=== PATIENT | female | born 1945 | race Caucasian/White ===

== ENCOUNTER 2017-08-10 02:11 | Inpatient (IN) | payer OTHER, MEDICARE ==
--- NOTE | 2017-07-29 15:05 | PN- Neurosurgical ---
Surgical Brief Attending Note Brief Attending Note: Chief complaint right neck and arm pain 71-year-old lady who became symptomatic region right shoulder 2017 and had multiple injections became more symptomatic in February 2017 with pain in the lower posterior right neck into the right shoulder into the anterior lateral aspect of the right arm to the mid arm level She complains of dropping objects and has interference with her sleep pattern. Her symptoms are worse with activity and improved with medication. She complains of numbness in her arm and posterior headaches. She has been in physical therapy for a lengthy period of time and had some relief with epidural injections Past medical history is positive for hypothyroidism hypotension fractured ankle the of 3 children She is allergic to penicillin She is taking levothyroxine Crestor Zetia will soften as tolerated an airborne. She does not have sleep apnea. She does not smoke. She very rarely uses ethanol. No use of illicit drugs. Examination she stands 5 foot 4 wastewater 18 pounds HEENT; her cranial nerves are intact. She has a relatively well preserved range of motion of her neck. She has no clearcut Spurling or axial loading signs. She has some weakness of extensor digiti quinti on the right. She has an absent triceps reflex on the right. Remainder of her reflexes are symmetric symmetrical. Pinprick does not reveal any strong loss. She has no evidence of myelopathy MRI demonstrates a large disc extrusion at C6 7 and significant spondylosis at C5 6 with a hemangioma body of C6 for admission discectomy fusion also vertebrectomy. KAISER Grider MD
[~2017-08-10] VITALS: Ht 162.6 cm; Wt 97.5 kg
[~2017-08-10 02:11] MED LIST: AIRBORNE EFFER1 EACH PO; CRESTOR5 M1 PO; LEVOTHYROXINE150 MCG PO; MERIBIN5 M1 PO; ZETIA10 M1 PO
[2017-08-10 06:50] LABS: ABSOLUTE BASOPHIL COUNT 0 /CUMM (0.0-0.2); ABSOLUTE EOSINOPHIL COUNT 0.3 /CUMM (0.0-0.7); ABSOLUTE GRANULOCYTE CT 2.4 /CUMM (1.4-6.5); ABSOLUTE LYMPH COUNT 1.7 /CUMM (1.2-3.4); ABSOLUTE MONOCYTE COUNT 0.6 /CUMM (0.10-0.60); BASOPHIL % 0.8 % (0.0-2.0); EOSINOPHIL % 5.5 % (0-5); GRANULOCYTE % 48.9 % (42.2-75.2); HEMATOCRIT 45.8 % (37-47); MEAN CORPUSCULAR HGB 28.9 PG (27.0-31.0); MEAN CORPUSCULAR HGB CONC 33.3 G/DL (33.0-37.0); MEAN CORPUSCULAR VOLUME 86.7 FL (81.0-99.0); MEAN PLATELET VOLUME 7.3 FL (7.4-10.4); PLATELET COUNT 171 /CUMM (130-400); RBC DISTRIBUTION WIDTH 13.6 % (11.5-14.5); RED BLOOD CELL CT 5.28 /CUMM (4.20-5.40)
[2017-08-10] MEDS ORDERED: HYZAAR 50-12.51 EACH PO (07:12)
[2017-08-10] MEDS ORDERED: ST. JOSEPH ASPI81 M1 PO (07:12)
[2017-08-10] MEDS ORDERED: PRILOSEC OTC20 M1 PO (07:13)
--- NOTE | 2017-08-10 12:39 | Operative Report ---
Operative/Inv Procedure Report Surgery Date: 08/10/17 Name of Procedure: #1 anterior cervical microscopic discectomy C56 C6-7 #2 preparation of space for fusion C5 6 C6 7 Pre-Operative Diagnosis: Herniated cervical disc C6 7 Spondylosis C5 6 Hemangioma C6 Post-Operative Diagnosis: Same Estimated Blood Loss: 200cc Surgeon/Deputy Sheriff [id number] Handler: Cheo MORELAND,Spencer Sanders(co-surgeon) MD Corea Michael Anesthesia: general endotracheal tube Monitors: Neurophysiology monitors IV Fluids: See anesthesia note Implants: see Spencer Grider MD's note Urine Output: See anesthesia note Drains: None Specimens: None Microbiology: None Tourniquet: None Complications: None Condition: Stable Operative Indication: 71-year-old woman with excruciating neck pain and arm pain was found to have a large disc herniation at C6-7 she was also unfortunately found to have significant amount of spondylotic disease at C5 6. Her condition was, plicated by the fact that she has a very large hemangioma within the body of C6 putting at risk the placement of screws at the time of instrumentation. It was decided that she needed a decidedly tethered disks excised and the osteophytes at C5 6 rim removed but also she was going to require an anterior vertebrectomy at C6 Indications for surgery alternative risks and possible complications including disfigurement and paralysis were discussed at length patient elected to have surgery performed O guarantees given all questions answered Operative/Procedure Note Note: The patient was brought supine to the operating room intubated supine kept supine with her head in a traction device with 15 pounds of weight and her arms tucked down by her She had received 2 g of intravenous antibiotics and 10 mg of Decadron The skin was prepped and draped usual sterile manner infiltrated with Xylocaine and epinephrine and sharp dissection was carried out into the skin folds and sharp and carried down to the platysma. Skin flaps were elevated superiorly and inferiorly. The platysma was dissected in the direction of its fibers and sharp dissection was carried out onto the anterior cervical fascia was identified fascia stripped superiorly and inferiorly following this [place] were positioned and film confirmed that we were at C5-C6 and C6-7 Following this after disinserting the longus coli muscle and inserting the Trimline retractors horizontally and vertically under the magnification and illumination provided for by the Leica microscope the disc space were entered at both levels starting at C6/7 and then at C5 6 attention was first directed to C6 -7 where disc material was completely removed and a rent in the posterior longitudinal ligament identified. Through that rents were able to extrude with her help of the nerve hook large pieces of fresh extruded disc. This rent was then enlarged and a recurrent large a remainder of disc was removed with nerve hook until passage of a micro-ball dissector came back without any further fragments Attention was then directed to the C5 6 level which significantly more osteophytic intervertebral body director mobile was used until identification of an edge where 1 mm Kerrison was passed from which using both 1 and 2 mm Kerrisons the osteophytes were taken down the foramen they opened Once the 2 spaces were free of direct compression of the cord the surfaces where prepared for fusion with the aid of angled curettes and high-speed drills to remove osteophytes The next step was to perform a vertebrectomy for excision of hemangioma and this we dictated separately Findings: Extruded disc at C6/7 Discharge Disposition: PACU Additional Comments: Neurophysiology monitoring remained silent CC: Mario MORELAND,Everett Sanders; Cheo MORELAND,Spencer Sanders
--- NOTE | 2017-08-10 13:50 | Admission Core Measures ---
Acute Coronary Syndrome (CM) ACS Core Measures Acute Coronary Syndrome Diagnosis No Congestive Heart Failure (NEW) CHF Core Measures Congestive Heart Failure Diagnosis No Cerebrovascular Accident CVA Core Measures CVA/TIA Diagnosis No Venous Thromboembolism VTE Core Amita (View Protocol) VTE Risk Factors Surgery No Mechanical VTE Prophylaxis d/t N/A MechProphylax Ordered No VTE Pharm Prophylaxis d/t NA PharmProphylax ordered Problem List As ranked by this Provider includes Assessment & Plan 1. Cervical spinal stenosis HOME MEDS Home Med List Aspirin ([place] Aspirin) 81 MG TABLET.DR 1 TAB PO DAILY HEART HEALTH ( Reported) Biotin (Meribin) (Unknown Strength) CAPSULE (Unknown Dose) PO DAILY SUPPLEMENT (Reported) Ezetimibe (Zetia) 10 MG TABLET 1 TAB PO DAILY CHOLESTEROL (Reported) Levothyroxine Sodium 150 MCG TABLET 1 TAB PO DAILY THYROID (Reported) Losartan/Hydrochlorothiazide (Hyzaar 50-12.5 Tablet) 50 MG-12.5 MG TABLET 1 TAB PO DAILY BP (Reported) Mv-Min/Vit C/Glu/Natasha HCl/Hc124 (Airborne Effervescent Tablet) (Unknown Strength) TABLET.EFF 3 TAB PO DAILY SUPPLEMENT (Reported) Omeprazole Magnesium (Prilosec Otc) 20 MG TABLET.DR 2 TAB PO DAILY GERD ( Reported) Rosuvastatin Calcium (Crestor) 5 MG TABLET 1 TAB PO DAILY CHOLESTEROL ( Reported)
--- NOTE | 2017-08-10 15:18 | RADIOLOGY REPORT ---
EXAMINATION: CR CERVICAL SPINE/INTRAOPERATIVE FLUOROSCOPY CLINICAL INDICATION: ACD C5-C6, C6-C7 with fusion in OR. COMPARISON: CT scan of the cervical spine dated 05/02/2017. MRI scan of the cervical spine dated 04/21/2017. TECHNIQUE/FINDINGS: Fluoroscopic equipment was dedicated to the operating room for the performance of an intraoperative procedure. Several (10) spot films were acquired and are archived in PACS. Please refer to operative notes for procedural detail. FLUOROSCOPY TIME: 1.1 minutes. IMPRESSION: Administrative dictation for intraoperative fluoroscopy and image archiving in PACS. Please refer to operative notes for details.
--- NOTE | 2017-08-10 16:43 | PN- Orthopedic ---
Subjective Subjective: POC still groggy from anesthesia, no oob yet, thirsty/hungry. no cp/sob/n/v. rue still weak, painful with limited rom "no better than before" Objective Vital Signs and I&Os see EMR Physical Exam: gen- nad, sleepy neck- collar in place, incision dressed- cdi. cad- s1s2 pulm- no audible wheeze ext- palp radial pulses bl, rue sensation intact, limited active rom. lue with gross motor/sensate intact. calves soft nt bl, gross motor/sensate intact, alps on. Assessment/Plan Assessment/Plan A- POD0 sp ACDF C5-6, C6-7, with residual effects of anesthesia, with continued preop RUE symptoms P- prn pain meds diet as tolerated home meds collar at all times hl once voiding, tolerating diet oob, ambualte alps no pharmacologic dvt ppx per Dr. Grider (home [id number] ok) will dw attending Core Measures Venous Thromboembolism VTE Risk Factors Surgery No Mechanical VTE Prophylaxis d/t N/A MechProphylax Ordered No VTE Pharm Prophylaxis d/t NA PharmProphylax ordered
[2017-08-10 17:56] VITALS: BP 160/90
[2017-08-10 20:08] VITALS: BP 166/90
[2017-08-10 21:36] VITALS: BP 170/90
[2017-08-11 02:05] VITALS: BP 166/98
[2017-08-11 06:00] VITALS: BP 158/82
--- NOTE | 2017-08-11 07:33 | PN- Neurosurgical ---
Surgical Brief Attending Note Brief Attending Note: POD#1 AVSS resolved arm pain expected neck discomfort,tolerable,but sore throat no hoarseness plan:ambulate hopefully discharge later today
[2017-08-11 08:34] LABS: ABSOLUTE BASOPHIL COUNT 0 /CUMM (0.0-0.2); ABSOLUTE EOSINOPHIL COUNT 0 /CUMM (0.0-0.7); ABSOLUTE GRANULOCYTE CT 11.7 /CUMM (1.4-6.5); ABSOLUTE LYMPH COUNT 0.9 /CUMM (1.2-3.4); ABSOLUTE MONOCYTE COUNT 0.9 /CUMM (0.10-0.60); BASOPHIL % 0 % (0.0-2.0); EOSINOPHIL % 0 % (0-5); HEMATOCRIT 42.7 % (37-47); MEAN CORPUSCULAR HGB 29.2 PG (27.0-31.0); MEAN CORPUSCULAR HGB CONC 33.8 G/DL (33.0-37.0); MEAN CORPUSCULAR VOLUME 86.6 FL (81.0-99.0); MEAN PLATELET VOLUME 8.1 FL (7.4-10.4); PLATELET COUNT 184 /CUMM (130-400); RBC DISTRIBUTION WIDTH 13.4 % (11.5-14.5); RED BLOOD CELL CT 4.94 /CUMM (4.20-5.40)
--- NOTE | 2017-08-11 08:44 | Patient Discharge Instructions ---
Discharge Instructions General Discharge Information You were seen/treated for: Neck pain and right upper extremity pain and weakness You had these procedures: C5/6, C6/7 decompression and fusion Watch for these problems: Fever over 100.4 Drainage from wound Redness and swelling around wound Increased pain or numbness in upper extremity Call Surgeon to remove: wound check No bath, but you may shower: Yes (keep wound clean and dry) Special Instructions: Daily dry dressing change Diet Continue normal diet: Yes Activity Activity Self Limited: Yes Pounds, do NOT lift more than: 10 Other activity limits: Cervical collar to be worn at all times Acute Coronary Syndrome Inclusion Criteria At DC or during hospital stay patient has or had the following: ACS DIAGNOSIS No Discharge Core Measures Meds if any: Prescribed or Continued at Discharge Meds if any: NOT Prescribed or Continued at Discharge Congestive Heart Failure Inclusion Criteria At DC or during hospital stay patient has or had the following: CHF DIAGNOSIS No Discharge Core Measures Meds if any: Prescribed or Continued at Discharge Meds if any: NOT Prescribed or Continued at Discharge Cerebrovascular accident Inclusion Criteria At DC or during hospital stay patient has or had the following: CVA/TIA Diagnosis No Discharge Core Measures Meds if any: Prescribed or Continued at Discharge Meds if any: NOT Prescribed or Continued at Discharge Venous thromboembolism Inclusion Criteria VTE Diagnosis No VTE Type NONE VTE Confirmed by (Test) NONE Discharge Core Measures - Per Current guidelines, there needs to be overlap - treatment for the first 5 days of Warfarin therapy. - If discharged on Warfarin prior to 5 days of - overlap therapy, the patient will need to be - assessed for post discharge needs including - *Post discharge parental anticoagulation - *Warfarin and/or parental anticoagulation education - *Follow up date to check INR post discharge At least 5 days overlap therapy as Inpatient No Meds if any: Prescribed or Continued at Discharge Note: Overlap Therapy is Warfarin and Anticoagulant Meds if any: NOT Prescribed or Continued at Discharge
[2017-08-11] MEDS ORDERED: PERCOCET 5-3251 EACH PO (08:45)
--- NOTE | 2017-08-11 08:49 | Surg Short-stay <48hrs Dis Sum ---
Visit Information Visit Dates Admission Date: 08/10/17 Surgical Short Stay DC Summary Admission Diagnosis: Cervical disc herniation Final Diagnosis: Same Procedure(s): C5-6, C6-7 decompression, fusion Summary/Significant Findings: Patient had an elective ACDF level of C5-6-7 on August 10, [address] Cecilia delgado in Spencer Grider MD. Patient tolerated the procedure well. Postoperatively she was tolerating a regular diet, her pain was controlled, she was voiding, she was working with physical therapy and cleared for discharge to home. Discharge prescriptions were given. She was given instructions to follow-up with Dr. Alegria in the office in 10-14 days. Discharge instructions are reviewed with the patient and she understood Condition at Discharge: Good Discharge Disposition: home health services Discharge instructions provided to patient/family: Yes Post discharge follow-up plan: Follow-up with Dr. Alegria in 10-14 days
[2017-08-11 10:00] VITALS: BP 140/80
[2017-08-11 10:06] LABS: WHITE BLOOD CELL COUNT 13.5 /CUMM (4.8-10.8)
[2017-08-11 14:22] VITALS: BP 130/70
--- NOTE | 2017-08-11 23:42 | PN- Orthopedic ---
Surgical Brief Attending Note Brief Attending Note: Hospital Postoperative Inpatient Follow-Up Note (POD #1, HD #1): Patient seen by Dr. Grider for routine inpatient postoperative follow-up on @ 12:30 PM. History Of Present Illness: Mabel Fry is a 71 year old right-handed white female now 1 day S/P C6-C7 and C5-C6 anterior cervical decompressive discectomies, C6 vertebrectomy for resection of erosive intravertebral hemangioma and C5-C7 instrumented structural and morselized corticocancellous autograft strut fusion (08/10/2017, Cheo/ Nahomy). The procedure was performed for very large C6-C7 disc herniation causing spinal cord compression, moderate lateral C5-C6 disk herniation causing radicular compression, degenerative disk disease with endplate signal change at both levels and C6 erosive hemangioma with vertebral wall defects suggesting high risk for or impending fracture and/or epidural hemorrhage. All of these findings were associated with intractable axial neck and right greater than left arm pain along with significant functional deficit unresponsive to a comprehensive and prolonged conservative management program despite good compliance. Her surgery was uncomplicated and she did well during the immediate postoperative period. There was no significant hemmorhage during the vertebrectomy and the entire hemangioma appeared to be resected without residua or significant remaining postoperative hemmorhage risk. She was closely observed overnight following standard anterior cervical discectomy and vertebrectomy postoperative nursing care protocols without any adverse symptomatic complaints or clinical status changes reported. Her pain was adequately controlled overnight per patient and nursing reports using oral and occasional iV breakthrough narcotic pain medication. She is comfortable currently with decreasing requirements for only oral medications to control pain at this point. She does not feel that she will require any further intravenous breakthough medication. She has already been ambulating in the hallway with physical therapy. She reports subjectively significantly decreased right arm radiating pain as well as early improvement in right hand strength and coordination. Her bilateral hand numbness is unchanged so far but is certainly no worse than it was preoperatively by patient report. She is tolerating collar use and appears to be compliant with minimizing neck motion. By standard criterion, the patient appears ready for home discharge. Physical Examination: On initial visual assessment of the patient upon entering the room, she appeared comfortable and was sitting upright in the chair eating lunch. She was fully awake without sedation and with appropriate responses to questions, commands and general conversation. She was not requiring supplemental nasal cannula oxygen and appeared to be exchanging air normally without any labored breathing. Her vocalizations were normal with only minimal and intermittent hoarseness consistent with early postoperative status following extensive, multilevel anterior cervical spinal decoompression and fusion particularly given her esparza neck. Her Rice-J rigid cervical immobilization collar was reasonably well fitted (albeit slightly but acceptably loose for patient comfort and tolerance) without discomfort or irritation evident. The collar was removed and the cervical region examined. There was no significant adverse change or increased pain reported with the collar removed. The dressing was clean, dry and intact. There was no evidence of irritation, inflammation, erythema, swelling, fullness, tenderness or any other abnormality in the surgical site or surrounding anterior cervical region to visual or palpation evaluation. The dressing was left in place and the patient will be instructed regarding dressing changes following showering. Motion was not tested due to her early postoperative status. The cervical collar was reapplied and the position of the Velcro straps were marked so that the patient could easily restore optimal fit as needed. The patient reported acceptable comfort in the collar after reapplication. On standard postoperative neuromuscular examination, her bilateral real estate consultant strength, finger extension and finger abduction (which had been slightly weak preoperatively) were normal. Her bilateral upper extremity motor examination was normal and unchanged from preoperative assessment. Her bilateral hand sensation was also normal and unchanged from her reported preoperative state. She reflexes and bilateral hand coordination were also grossly normal and unchanged from preop. She can already flex and abduct the right shoulder to a higher elevation and maintain elevation against resistance with full strength without give-way which was not possible preoperatively due to radicular pain and subtle weakness. She is still quite limited in motion and function of the right shoulder secondary to severe osteoarthritis and this is now Her primary complaint whereas preoperatively, it was the radiating arm pain that was most limitiing. Assessment: Mabel Fry is a 71 year old right-handed white female now 1 day S/P C6-C7 and C5-C6 ACD and separate C6 vertebrectomy for erosive lesion followed by C5-C7 instrumented strut fusion (08/10/2017, Cheo/Nahomy). Her surgery was uncomplicated and she has done extremely well postoperatively, already reporting some early signs of spinal cord and nerve root functional improvement which is very encouraging. She is mobilizing well. There is no sign of cervical swelling and nothing to suggest postoperative hemorrhage. Her standard postoperative prophylactic course of intravenous antibiotics has been completed. Her pain is well controlled on oral pain and muscle relaxant medications. She is at least reasonably comfortable in and compliant with the cervical collar immobilization. She feels ready and is cleared clinically for home discharge. Recommendations/Plan: The patient will be discharged to home and will follow all standard anterior cervical discectomy and vertebrectomy postoperative care protocols. The patient 's cervical collar should be used most of the time when She is sitting upright or out of bed but does not need to be used in bed while resting or sleeping. She may use either a soft foam or rigid collar for sleep if she so chooses. This schedule of collar use should continue for at least 6 weeks or until instructed otherwise by the surgeons after followup office assessment. The rigid (Rice-J) collar can be removed as needed for hygeine and exchanged with a "shower collar" ([place] collar which she was given in the hospital) for showering. The surgical site may get wet with showering but avoid soap in that area as much as possible. If the incision comes into contact with soap simply wash away with water. Do not scrub or vigorously wipe the incision. Pat or gently wipe the incision dry without rubbing after showering. A clean dressing should be applied after showering or once per day and as needed for the first 5- 7 days. No dressing is needed thereafter as long as the patient is able to keep the surgical area clean and dry. She can advance her diet as tolerated. Prescriptions were written for Oxycodone and Valium. She will be seen in the office at 10-14 days after surgery per scheduling which was arranged preoperatively.
--- NOTE | 2017-08-12 21:31 | Operative Report ---
Operative/Inv Procedure Report Surgery Date: 08/10/17 Name of Procedure: 1) C5-C6 Anterior Cervical Discectomy For Neural Element (Spinal Cord And Nerve Root) Decompression ([facility]) 2) C6-C7 Anterior Cervical Discectomy For Neural Element (Spinal Cord And Nerve Root) Decompression ([facility]) 3) C6 Anterior Cervical Vertebral Body Resection For Intrinsic Potentially Expansile And Compressive Lesion (Large Partially Erosive Hemangioma) Resulting In Destabilized Cervical Deformity Requiring Anterior Column Reconstruction ( [facility]) 4) C5-C7 Anterior Cervical Spinal Multi-Segmental Anterior Column Defect Reconstruction, Deformity Correction And Interbody Arthrodesis For Destabilized And Kyphotic Segment Following Corpectomy For Resection Of Intrinsic Lesion ( [facility]) 5) C5-C7 Anterior Cervical Interbody Stacked PEEK Implant Instrumentation ( [facility]) 6) C5-C7 Anterior Cervical Transvertebral Plate-Screw Implant Construct Instrumentation ([facility]) 7) C5-C6 And C6-C7 Use Of Operating Microscope ([facility]) Pre-Operative Diagnosis: C6-C7 Large Highly Neurocompressive Herniated Disk C5-C6 Neurocompressive Herniated Disk Spinal Cord Compression Erosive C6 Intravertebral Lesion (Hemangioma) With Cortical Wall Compromise And Impending Structural Instability Right Upper Extremity Radiculopathy Right Upper Extremity Weakness C5-C6 Degenerative Disk Disease C6-C7 Degenerative Disk Disease Post-Operative Diagnosis: Same as preop Estimated Blood Loss: 200 cc Estimate Blood Loss, 110 cc Cell Saver Return Surgeon/Liquor Tester: JOSELIN MACKENZIE MD - Primary Admitting Orthopaedic Spine Co-Surgeon RONAK COREA MD - Primary Consulting Neurological Spine Co-Surgeon Surgical Providers: Regarding Orthopaedic Spine Portion Of Procedure Dictated Here: Joselin Mackenzie M.D. - Orthopaedic Spine Surgeon (Co-Surgeon/Primary Admitting Surgeon) Ronak Corea M.D. - Neurosurgeon (Co-Surgeon/Liquor Tester Surgeon) See Neurosurgical Operative Report Regarding Surgical Provider Designation For Neurosurgical Spine Portion Of Procedure Anesthesia: general endotracheal tube Monitors: Standard general anesthesia and other perioperative monitoring was performed per anesthesia protocols. Standard Intraoperative EMG, SSEP, recurrent laryngeal nerve and MEP electrophysiological monitoring (Neuro[facility]) Refer to anesthesia and intraoperative electrophysiological monitoring records for details. IV Fluids: Standard anesthesia fluid management was performed without requirement for additional or emergent fluid resuscitation. Refer to anesthesia records for details. Implants: Implants: Implants Placed: Anterior Interbody Implants: Medtronic Cornerstone Anatomic PEEK PTC Verte-Stack Interbody Strut Cage Modular Construct Implant: Strut Assembled Per System Interlocking Modular Design Using (From Cephalad To Caudal): 1 x 10 mm Height x 11 mm Depth x 14 mm Width Cornerstone Anatomic PEEK PTC Cage Cepahald Component 1 x 5 mm Height x 11 mm Depth x 14 mm Width Cornerstone Anatomic PEEK Strut Middle Component 1 x 10 mm Height x 11 mm Depth x 14 mm Width Cornerstone Anatomic PEEK PTC Cage Caudal Component Anterior Transvertebral Cervical Implants: Medtronic Anterior Cervical [place] Vision Elite (AVE) Plate- Screw Construct: 1 x 40 mm 2-Level (6-Mfvavxdyepvozn-Faqglf-Segment, 3- Vertebral-Element), 6-Hole AVE Plate Implanted Spanning The C5-C7 Segment With Fixation At The C5 And C7 Vertebral Levels 2 x 13 mm Length x 3.5 mm Diameter Fixed Angle Self- Tapping (FAST) AVE Screws Implanted Bilaterally At C7 2 x 13 mm Length x 3.5 mm Diameter Variable Angle Self- Tapping (VAST) AVE Screws Implanted Bilaterally At C5 Graft: Graft Placed: Structural Corticocancellous Locally Harvested Autograft: Harvested From: Left C6 Anterior Vertebral Body Wall (Remote From Right- Sided Hemangioma) x 2 Vertical Struts Contoured And Placed: Vertically End-To-End Within The Central Chamber Of The Interbody Modular Cage Construct Spanning From C5-C7 And Projecting Into Indentations Fashioned In Both Endplates Morselized Cancellous Locally Harvested Autograft Harvested From: Left C6 Vertebral Body (Remote From Right-Sided Hemangioma) As Well As Decorticated And Drill Contoured Osseous Endplate Bone Of The C5 And C7 Levels Placed: Densely Packed In The Central Chamber Of The Cephalad And Caudal Components Of The Interbody Strut Construct Surounding The Corticocancellous Autograft Strut Which Spanned All Three Implant Components Urine Output: Refer to anesthesia records for details. Drains: None Specimens: Removed cervical disk fragments sent to pathology for analysis per hospital protocol Tourniquet: None Operative/Procedure Note Note: Preoperative Holding Area Assessment/Preparation: The patient was evaluated in the preoperative holding area prior to surgery and no clinical changes or contraindications to surgical intervention were documented compared to the preoperative office and clearance evaluations. She denies any recent symptom changes other than slowly progressive worsening nack, upper shoulder and radiating right arm pain and numbness. Her right shoulder mechanical pain and limitation of range of motion secondary to documented osteoarthritis is unchanged from clearance evaluations. As in the office, the patient was otherwise grossly neurovascularly and musculoskeletally intact in the neck and both upper extremities to standard testing. Active, patient controlled Lhermitte's maneuvers was negative. Active, patient controlled Spurling's maneuver was positive to the right and similar to the response documented in the office. Her reflexes were normal and unchanged from preoperative assessment. There were no new hyperactive, abherent or otherwise abnormal reflexes to suggest acute, resting or positional neural element compression that might be associated with increased neurological intraoperative risk based on immediate preoperative assessment. She did however have severe and spasmodic axial and radiating upper extremity pain at the extremes of all neck motions, particularly with maximal flexion, extension sagittal or right greater than left axial plane motion. The comfortable range of motion was noted and care was taken to maintain the patient's cervical spinal position well within this range throughout the procedure. The surgical plan and site were confirmed with the patient and preoperative paperwork was finalized. The region of the intended surgical site was cleansed, prepped and marked per protocol. The surgeons, anesthesia care team members, and operating room staff confirmed the patient identity, surgical procedure, and operative site as well as other clinical details with the patient in an initial documented preoperative confirmation (awake time out) prior to the administration of significant sedation or anesthesia. Prior to receiving any preoperative medications, she confirmed her oral intake status as NPO since midnight prior to surgery. Surgical Procedure: Dr. Mackenzie and Dr. Corea were both present for and participated equally as co-surgeons in all clinically significant phases of the surgical procedure documented below as well as for all critical intraoperative and perioperative decisions and interventions. The set-up, positioning, arthrodesis, harvest of local structural bone graft, corpectomy, resection of benign lesion (hemangioma) instrumentation and closure portions of the procedure are described in greatest detail in this operative report. Refer to Dr. Cleary Neurosurgical operative report for additional details particularly regarding the electrophysiological monitoring, application of cervical traction, exposure, discectomies, osteophytectomies, neural element decompression and microsurgical (use of the operating microscope) portions of the procedure. The patient's body habitus and obesity (based on World Health Organization criteria with BMI = 37.8) with short , deep and muscular neck increased the difficulty and risk of the procedure but did not specifically require additional procedural services in this case. Set-Up/Positioning/Exposure - The patient was brought to the operating room in stable condition and underwent uncomplicated induction of general anesthesia, intubation, and placement of all appropriate monitors, lines, tubes and catheters without difficulty. Administration of 2 grams of IV Ancef based on patient body mass was given for surgical prophylaxis and was completed at least 30 and less than 60 minutes prior to making an incision. Given the significant radiologically documented central canal cervical spinal stenosis associated with central canal spinal cord compression on MRI, preoperative corticosteroids (Decadron 10 mg) were recommended by the surgeons for its theoretical neuroprotective effects as well as for anesthesia to optimize perioperative airway management and nausea prophylaxis. This dose was administered intravenously by the anethesia team shortly after intubation per standard anesthesia protocols without any adverse effect noted. The patient was positioned supine on the operating table in standard fashion for an anterior cervical discectomy, corpectomy for resection of erosive vertebral body lesion and instrumented strut fusion taking care to protect and stabilize the spine during transfer and positioning, avoid positions of nerve stretch, pad all pressure points, and support the head and neck in a slightly extended position using a rolled sheet under the scapulae and a gel donut head rest under the occiput. Care was taken during pre- and intraoperative positioning as well as throughout the procedure to maintain the head and neck within the range of angulation documented above by the patient to be comfortable and asymptomatic without exacerbation of symptoms during the preoperative assessmen. Harness cervical traction apparatus was placed in standard fashion with 15 pounds of stabilizing weight applied (given the patient's short, muscular neck and the need to visualize down to the intended lower cervical operative levels) taking care to avoid any cutaneous shear force or force transmission to the endotracheal tube. The operating table was gently flexed upward at the waist and downward at the knees in a partial "beachchair" position to optimize stability of the patient on the table as well as the angle of access to the cervical disk spaces particularly under microscope visualization. Electrophysiological monitoring electrodes were placed per standard monitoring protocol. Wrist cuffs were placed with sufficient circumferential approximation so that bilateral upper extremity traction could be applied during the case if necessary for radiologic visualization, but loose enough that there was no pressure to the wrists when traction was not being applied. Care was taken to insure that all IV sites and monitoring leads were protected given that wrist traction was likely to be required during the procedure. The arms were well padded and tucked at the patient's sides, again taking care to protect all IV sites and monitoring leads. Baseline preoperative EMG, SSEP, recurrent laryngeal and MEP electrophysiological monitoring readings were obtained with normal signal patterns and magnitudes documented and no gross abnormalities noted. A cross- table lateral fluoroscopic image was obtained with a radiopaque skin marker in place to determine the optimal level for incision, to document optimized intraoperative cervical alignment as well as to confirm acceptable radiologic visualization and definitive numerical identification of the intended operative levels with sufficient detail down to the lower cervical and cervicothoracic levels throughout the procedure. Moderate bilateral upper extremity traction was helpful and, in fact, necessary to obtain optimal visualization during this localization phase of the procedure. The intended incision was planned within the primary skin crease closest to the radiopaque marker which was confirmed to be directly over the planned surgical levels. This anterior cervical incision was delineated with a surgical ink marker prior to prep and drape. The approach, exposure, hemostasis, retractor placement, fluoroscopic identification of the intended operative levels, use of the operating microscope , discectomy, posterior disc space endplate and uncovertebral osteophytectomy and central and foraminal neural element decompression portions of the procedure are dictated in greatest detail by Dr. Corea in his Neurosurgery operative report. Refer to that document for additional details regarding these portions which are only briefly reviewed here. The corpectomy, lesion resection and instrumented arthrodesis portions of the procedure including harvest (and subsequent implantation of structural corticocancellous strut and morselized cancellous autograft material, vertebrectomy with resection of erosive lesion ( hemangioma), preparation and decortication of endplates as well as implantation of interbody strut and transvertebral instrumentation is described in detail in this operative report. Discharge Disposition: PACU CC: [facility]o MORELAND,Joselin Sanders; N[facility]omy MORELAND,Ronak Solomon
== END 2017-08-11 16:34 | disposition home health service (06) | DRG 473 ==
LOC: SDA 02:11 → ENRESERV 13:35 → ENTRNSPT 15:44 → EDTRNSPT 15:53 → EDTRNSPTSTS 15:53 → 2NA 16:01 → CMPTRNSPT 16:18 → ENTRNSPT 08-11 16:18 → 2NA 08-11 16:34 → CMPTRNSPT 08-11 16:38
PROVIDERS: Nurse Practitioner; Orthopaedic Surgery Orthopaedic Surgery of the Spine
PROC: 0RB30ZZ Excision of Cervical Vertebral Disc, Open Approach (ICD-10-PCS; principal; 2017-08-10)
PROC: 0RG20A0 Fusion of 2 or more Cervical Vertebral Joints with Interbody Fusion Device, Anterior Approach, Anterior Column, Open Approach (ICD-10-PCS; principal; 2017-08-10)
DX: M47.9 Spondylosis, unspecified (principal); D18.09 Hemangioma of other sites; J45.909 Unspecified asthma, uncomplicated; I10 Essential (primary) hypertension; E78.5 Hyperlipidemia, unspecified; K21.9 Gastro-esophageal reflux disease without esophagitis; Z88.0 Allergy status to penicillin; E66.9 Obesity, unspecified; Z68.36 Body mass index [BMI] 36.0-36.9, adult
CPT/HCPCS: 2NASP; 36415; 36592; 72020; 82436; 87086; 88304; C1713; J0131; J0690; J1100; J1644; J2550; J3490; J7042